=== PATIENT | male | born 1950 ===

== ENCOUNTER 2021-02-26 06:00 | Day surgery (SDC) | payer OTHER | END 2021-02-26 11:10 | disposition home or self-care (01) | LOC: AMB-ENDOS 06:00 | PROVIDERS: ATTEND Surgery | DX: D12.0 Benign neoplasm of cecum (principal); K62.1 Rectal polyp; K64.8 Other hemorrhoids; Z20.822 Contact with and (suspected) exposure to COVID-19 ==